=== PATIENT | female | born 1990 | race Caucasian/White ===

== ENCOUNTER 2021-12-13 08:02 | Outpatient (CLI) | payer OTHER, BC, SELFPAY ==
[2021-12-13 12:36] LABS: Hemoglobin A1c 5.7 % (3.8-5.6)
[2021-12-13 12:53] LABS: ALB/GLOB Ratio 0.9 RATIO (0.9-2.4); AST(SGOT) 10 U/L (15-37); Alanine Aminotransfer ALT/SGPT 32 U/L (13-56); Albumin, Serum 3.6 g/dL (3.2-5.0); Alkaline Phosphatase 93 U/L (45-117); Anion Gap 9 (5-15); BUN 13 mg/dL (7-18); BUN/Creat Ratio 17.8 RATIO (10-20); Chloride 104 mmol/L (98-107); Cholesterol 178 mg/dL (200); Creatinine, Serum 0.73 mg/dL (0.55-1.02); EST Glomerular Filtration Rate 99 mL/min (>60); Est Glom Filt Rate - Afr Amer 119 mL/min (>60); Estradiol 32.6 pg/mL; Follicle Stimulating Hormone 5.8 mIU/mL; Globulin 4.2 g/dL (2.2-4.2); Glucose 86 mg/dL (74-106); High Density Lipoprotein 32 mg/dL; Luteinizing Hormone 3.8 mIU/mL; Potassium 4.2 mmol/L (3.5-5.1); Prolactin 26.8 ng/mL; Protein, Total 7.8 g/dL (6.4-8.2); Sodium Level 139 mmol/L (136-145); T4 Free Direct 1.06 ng/dL (0.76-1.46); Thyroid Stim Hormone (TSH) 2.78 uIU/mL (0.358-3.74); Triglycerides 116 mg/dL; Very Low Density Lipoprotein 23 mg/dL (5-40)
[2021-12-16 10:07] LABS: Testosterone, % Free 3.24 % (0.50-2.80); Testosterone, Free 2.46 ng/dL (0.10-0.85); Testosterone, Total 76 ng/dL (8-60)
[2021-12-16 13:03] LABS: Adrenocorticotropic Hormone 26.6 pg/mL (7.2-63.3); Thyroid Peroxidase AB 15 IU/mL (0-34)
[2021-12-20 19:14] LABS: 17-Hydroxyprogesterone 26 ng/dL (.)
== END 2021-12-13 23:59 | disposition short-term general hospital (02) ==
LOC: BIMLAB 08:03
PROVIDERS: Referring Provider Internal Medicine Endocrinology, Diabetes & Metabolism; Visit Provider Internal Medicine Endocrinology, Diabetes & Metabolism
DX: E28.2 Polycystic ovarian syndrome (principal); E28.8 Other ovarian dysfunction; R73.09 Other abnormal glucose; E55.9 Vitamin D deficiency, unspecified
CPT/HCPCS: 36415; 80053; 80061; 82024; 82306; 82533; 82627; 82670; 83001; 83002; 83036; 83498; 84146; 84402; 84403; 84439; 84443; 86376; 82626

== ENCOUNTER 2022-01-21 16:59 | Outpatient (CLI) | payer OTHER, BC, SELFPAY ==
[2022-01-25 14:04] LABS: HPV APTIMA, High Risk Negative (Negative)
== END 2022-01-21 23:59 | disposition home or self-care (01) ==
PROVIDERS: Visit Provider Obstetrics & Gynecology
DX: Z12.4 Encounter for screening for malignant neoplasm of cervix (principal)
CPT/HCPCS: 87624; 88175; G0145